=== PATIENT | male | born 1980 ===

== ENCOUNTER 2017-04-25 17:12 | Emergency (ER) | payer OTHER ==
[2017-04-25 17:33] VITALS: BP 128/75
--- NOTE | 2017-04-25 18:34 | UC ---
Lower Extremity/Ankle HPI - HPI Summary HPI Summary: pain in both feet for about ten years---no known trauma--pain in along arch medially both feet and Left great toe pain that waxes and wanes in severity--- MTP joint gets red - History of Current Complaint Chief Complaint: UCLowerExtremity Stated Complaint: PAIN IN FEET Time Seen by Provider: 04/25/17 18:31 Hx Obtained From: Patient Onset/Duration: Gradual Onset, Worse Since - waxing and waneing for 10 years Severity Initially: Moderate Severity Currently: Moderate Aggravating Factor(s): Standing, Ambulation Alleviating Factor(s): Nothing Able to Bear Weight: Yes - Allergies/Home Medications Allergies/Adverse Reactions: Allergies Allergy/AdvReac Type Severity Reaction Status Date / Time No Known Allergies Allergy Verified 11/18/14 17:28 Home Medications: Home Medications ALPRAZolam TAB* [Xanax TAB*] 0.5 mg PO TID PRN 04/25/17 [History Confirmed 04/25] Cyclobenzaprine TAB* [Flexeril 10 MG TAB*] 10 mg PO BID PRN 04/25/17 [History Confirmed 04/25/17] Escitalopram Oxalate [Lexapro 10 mg] 10 mg PO DAILY 04/25/17 [History Confirmed 04/25/17] Lisinopril [Zestril 10 MG-] 10 mg PO DAILY 04/25/17 [History Confirmed 04/25/17] Pantoprazole Sodium 20 mg PO 04/25/17 [History] traZODone TAB* [Desyrel TAB*] 50 mg PO BEDTIME 04/25/17 [History Confirmed 04/25] PMH/Surg Hx/FS Hx/Imm Hx Previously Healthy: No Cardiovascular History: Hypertension Psychological History: Depression - Surgical History Surgical History: Yes Surgery Procedure, Year, and Place: appendectomy - Family History Known Family History: Positive: Other - gout and chronic foot problems - Social History 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 Lives: With Family Alcohol Use: Weekly Alcohol Amount: 2 beers one time a week Substance Use Type: None Smoking Status (MU): Current Every Day Smoker Type: Cigarettes Amount Used/How Often: 1/4 PPD Length of Time of Smoking/Using Tobacco: 5 years Have You Smoked in the Last Year: Yes Household Exposure Type: Cigarettes Cessation Counseling: Counseled 3+Min - 10 Min Review of Systems Constitutional: Negative Skin: Negative Eyes: Negative ENT: Negative Respiratory: Negative Cardiovascular: Negative Gastrointestinal: Negative Genitourinary: Negative Motor: Negative Neurovascular: Negative Musculoskeletal: Arthralgia - left great toe on medial instep of both feet Neurological: Negative Psychological: Negative All Other Systems Reviewed And Are Negative: Yes Physical Exam Triage Information Reviewed: Yes Appearance: Well-Appearing, No Pain Distress, Obese Vital Signs: Initial Vital Signs Temp 98.1 F 04/25/17 17:29 Pulse 62 04/25/17 17:29 Resp 18 04/25/17 17:29 BP 128/75 04/25/17 17:29 Pulse Ox 99 04/25/17 17:29 Vital Signs Reviewed: Yes Eye Exam: Normal Eyes: Positive: Conjunctiva Clear ENT Exam: Normal ENT: Positive: Normal ENT inspection, Hearing grossly normal. Negative: Nasal congestion, Nasal drainage, Trismus, Muffled/hoarse voice Dental Exam: Normal Neck exam: Normal Neck: Positive: Supple, Nontender Respiratory Exam: Normal Respiratory: Positive: No respiratory distress, No accessory muscle use Cardiovascular Exam: Normal Cardiovascular: Positive: RRR, Pulses Normal, Brisk Capillary Refill Musculoskeletal Exam: Normal Musculoskeletal: Positive: Strength Intact, ROM Intact, No Edema Neurological Exam: Normal Neurological: Positive: Alert, Muscle Tone Normal Psychological Exam: Normal Skin Exam: Normal Lower Extremity Course/Dx - Course Course Of Treatment: indocin, uric acid level, post op shoe, follow with podiatry, nicotine ce sation information - Differential Dx/Diagnosis Differential Diagnosis/HQI/PQRI: Fracture (Closed), Gout, Infection, Sprain, Strain, Tendonitis Provider Diagnoses: Gout Left MTJ, chronic foot pain, nicotine dependent, hypertension in good control Discharge - Discharge Plan Condition: Stable Disposition: HOME Prescriptions: Indomethacin CAP* [Indocin CAP*] 25 - 50 mg PO TID PRN #40 cap PRN Reason: pain Patient Education Materials: How to Stop Smoking (ED), Low Purine Diet (ED), Gout (ED) Forms: *Work Release Referrals: Carson Gonzalez DPM [Doctor of Podiatric Medicine] - 1 Week Juani Rose DPM [Doctor of Podiatric Medicine] - 1 Week Rik Tan MD [Medical Doctor] - 1 Week Krishna Abad DPM [Doctor of Podiatric Medicine] - 1 Week
== END 2017-04-25 19:05 | disposition home or self-care (01) ==
LOC: UCEAST 17:12
DX: M10.9 Gout, unspecified (principal); M79.672 Pain in left foot; M79.671 Pain in right foot; G89.29 Other chronic pain; F17.210 Nicotine dependence, cigarettes, uncomplicated; I10 Essential (primary) hypertension
CPT/HCPCS: 36415; 84550; 99213; G0463